=== PATIENT | male | born 1995 | race Hispanic/Latino ===

== ENCOUNTER 2018-05-25 00:39 | Emergency (ER) | payer OTHER, SELFPAY ==
[2018-05-25 00:50] VITALS: BP 136/93; PULSE 60; RESP 18; TEMP 36.7; O2SAT 98; BMI 22.4
[2018-05-25 01:10] VITALS: BP 128/78; PULSE 58; RESP 14; TEMP 36.7; O2SAT 100; BMI 22.4
--- NOTE | 2018-05-25 01:10 | DI.CT.S_ITS ---
PROCEDURE: CT HEAD/BRAIN WO CON INDICATIONS: head injury, hit in head by machine at work TECHNIQUE: Noncontrast 4.5 mm thick angled axial sections acquired from the foramen magnum to the vertex, with coronal and sagittal reformats. For radiation dose reduction, the following was used: automated exposure control, adjustment of mA and/or kV according to patient size. COMPARISON: None. FINDINGS: Image quality: Excellent. CSF spaces: Basal cisterns are patent. No extra-axial fluid collections. Ventricles are normal in size and shape. Brain: No intracranial hemorrhage, mass, or mass effect. Loredo-white matter interface is preserved. Skull and face: Calvarium and visualized facial bones appear intact. There is soft tissue swelling of the scalp with a small associated subcutaneous hematoma in the posterior vertex region. Sinuses: Visualized sinuses and mastoids are clear. IMPRESSION: 1. No acute intracranial abnormality. 2. Posterior scalp soft tissue swelling and small subcutaneous hematoma at the vertex. No associated fracture. Dictated by: Dwayne Gregg M.D. on 05/25/2018 at 7:58 Approved by: Dwayne Gregg M.D. on 05/25/2018 at 8:00
--- NOTE | 2018-05-25 01:10 | DI.CT.S_ITS ---
PROCEDURE: CT CERVICAL SPINE WO CON INDICATIONS: neck pain, hit in head by machine at work TECHNIQUE: Noncontrast 3 mm thick sections acquired from the skull base to the T4 level. Sagittal and coronal reformats were then constructed. For radiation dose reduction, the following was used: automated exposure control, adjustment of mA and/or kV according to patient size. COMPARISON: None. FINDINGS: Image quality: Excellent. Bones: No fractures or dislocations. There is a levoscoliosis of the cervicothoracic spine centered at C7-T1. Straightening of the cervical lordosis is noted. Visualized superior ribs are intact. Soft tissues: Prevertebral soft tissues are normal in thickness. No paravertebral hematomas. No apical pneumothoraces. IMPRESSION: 1. No fracture or subluxation. 2. Levoscoliosis of the cervicothoracic spine and straightening of the cervical lordosis. Dictated by: Dwayne Gregg M.D. on 05/25/2018 at 8:00 Approved by: Dwayne Gregg M.D. on 05/25/2018 at 8:03
--- NOTE | 2018-05-25 01:40 | ED.TRAUMA ---
HPI - Trauma General Chief Complaint: Extremity Injury, Upper Stated Complaint: hit in head by machine work/ neck/back/head inj Time Seen by Provider: 05/25/18 00:41 Source: patient and family Mode of arrival: ambulatory Limitations: no limitations History of Present Illness HPI narrative: 23-year-old male with no medical history presents to the emergency department with a chief complaint of head and neck pain after work-related injury. The patient was wearing home and was struck in the head by heavy, 400 lb, door that struck him in the back of his helmeted head. He denies loss of consciousness nor nausea, vomiting or diarrhea. He denies any focal neurologic findings above. He does not have any alcohol or street drugs on board MD complaint: injury Onset (ago): minute(s) Loss of Consciousness: no Location: head Context: unsure Associated symptoms: nausea Related Data Previous Rx's Medication Instructions Recorded cyclobenzaprine 10 mg PO TID PRN #14 tab 05/25/18 hydrocodone-acetaminophen 1 tab PO Q4-6H PRN #14 tab 05/25/18 ibuprofen 600 mg PO TID-QID PRN #20 tab 05/25/18 Allergies Allergy/AdvReac Type Severity Reaction Status Date / Time No Known Drug Allergies Allergy Verified 05/25/18 02:03 Review of Systems Review of Systems All systems reviewed & are unremarkable except as noted in HPI and below Constitutional Denies chills, Denies fever(s), Denies lethargy and Denies weakness Eyes Denies change in vision, Denies eye discharge, Denies irritation and Denies loss of vision ENT Ears, Nose, Mouth, and Throat: Denies change in voice, Reports neck pain and Denies sore throat Cardiovascular Denies chest pain, Denies irregular heart rhythm, Denies lightheadedness, Denies palpitations, Denies dyspnea, Denies dyspnea on exertion and Denies orthopnea Respiratory Denies cough, Denies dyspnea, Denies dyspnea on exertion and Denies wheezing Gastrointestinal Gastrointestinal: Denies abdominal pain, Denies change in bowel habits, Denies diarrhea, Denies nausea and Denies vomiting Genitourinary Denies hematuria, Denies flank pain, Denies urinary incontinence and Denies urinary urgency Musculoskeletal Reports back pain and Reports neck pain Integumentary/Breasts Denies pruritus, Denies erythema, Denies rash and Denies wounds Neurologic Denies confusion, Denies loss of vision and Denies weakness Psychiatric Denies anxiety, Denies confusion, Denies depression, Denies homicidal ideation and Denies suicidal ideation Endocrine Denies palpitations Hematologic/Lymphatic Denies easy bruising Allergic/Immunologic Denies wheezing Exam Narrative Exam Narrative: 23-year-old male obviously uncomfortable walking very stiff holding his neck Initial Vital Signs Initial Vital Signs: Vital Signs Temperature 98.1 F 05/25/18 00:50 Pulse Rate 60 05/25/18 00:50 Respiratory Rate 18 05/25/18 00:50 Blood Pressure 136/93 H 05/25/18 00:50 Pulse Oximetry 98 05/25/18 00:50 Const General: cooperative and well developed Nutritional Appearance: well nourished Orientation: alert, awake, oriented x3 and not confused HENMT Head: normocephalic and atraumatic Ears: external ears normal and TM's normal bilaterally Nose: external nose normal and No nasal discharge Face and sinus: sinuses nontender, face symmetric, no sinus tenderness and No dry mucous membranes Mouth: oral mucosae normal and moist mucous membranes Teeth and gingiva: dentition normal Throat: tonsils normal and uvula midline Eyes General: appearance normal, both eyes and all related structures Eyelids: eyelids normal Conjunctivae: conjunctivae normal Sclera: sclerae normal Pupils: PERRL EOM: EOM intact bilaterally Neck Neck: tender (Left side. No increase with axial load. No neuro findings such as numbness, tingling or weakness) Chest Chest: normal inspection of the chest Resp Effort & Inspection: normal respiratory effort, able to speak in complete sentences, no respiratory distress and no use of accessory muscles Auscultation: clear to auscultation bilaterally, no rales, no rhonchi and no wheezes Cardio Rate: regular rate Rhythm: regular rhythm Heart Sounds: no click, no gallops, no murmurs and no rubs Pulses: normal peripheral pulses GI Inspection: non-distended Palpation: soft, no hepatosplenomegaly, No guarding, No pulsatile mass and No tender Auscultation: normal bowel sounds Back/Spine/Pelvis Back: normal to inspection Cervical Spine: No cervical ROM normal, pain with cervical ROM, cervical spasm and cervical spinal tenderness Thoracic/Lumbar Spine: thoracic and lumbar spine normal to inspection Sacroiliac Joints: nontender Course Orders Ordered: ED Orders 05/25/18 01:10 CT cervical spine wo con Stat CT head/brain wo con Stat Discontinued Medications Hydrocodone Bitart/Acetaminophen (Vicodin Prepack) 1 bottle MISC SEEINSTR ONE Stop: 05/25/18 02:31 Last Admin: 05/25/18 02:40 Dose: 1 bottle Hydromorphone HCl (Dilaudid) 1 mg SUBCUT Q4H PRN PRN Reason: Pain, Severe (7-10) Last Admin: 05/25/18 02:35 Dose: 1 mg Vital Signs - 8 hr 05/25/18 00:50 05/25/18 03:21 Temperature 98.1 F Pulse Rate 60 58 L Respiratory Rate 18 14 Blood Pressure 136/93 H 128/78 H Pulse Oximetry 98 100 MDM - Trauma Medical Records Attestation: I reviewed the patient's medical records. Imaging Data CT scan - head: Radiologist's impression: CT HEAD: NAP CT Cspine: NAP Discharge Plan Departure Patient Disposition: Home Clinical Impression: Acute neck sprain Discharge Date/Time: 05/25/18 03:22 Interventions: ED Discharge Assessment Last Done: 05/25/18 03:21 Instructions: DI for Neck Pain Activity Restrictions/Additional Instructions: *You have been diagnosed with [ acute neck pain, status post work injury ] *What to do: *Take medications as directed *Follow up with your primary care provider in 2-3 days, call for an appointment. Let them know you were seen in the Emergency Department and that we ask that you be seen in follow up *Return to ER if you should have any new, worsening or concerning symptoms You have been prescribed narcotic medications. While on these medications you cannot drive or operate heavy machinery. Additionally you cannot sign legal documents or perform any duties such as this. 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 Please understand that we cannot provide further refills of narcotics or controlled substances through the ED and your pain management will need to be through your Primary Care Provider Prescriptions: New cyclobenzaprine 10 mg tablet 10 mg PO TID PRN (Reason: muscle spasm) Qty: 14 RF: 0 hydrocodone-acetaminophen 5-325 mg tablet 1 tab PO Q4-6H PRN (Reason: pain) Qty: 14 RF: 0 ibuprofen 600 mg tablet 600 mg PO TID-QID PRN (Reason: pain) Qty: 20 RF: 0 Stand Alone Forms: Work/School Restrictions
[2018-05-25] MEDS: HYDROMORPHONE 2 MG INJ 1 MG SUBCUT (02:35)
[2018-05-25] MEDS: HYDROCODONE/ACET 5/325 PREPACK 1 BOTTLE MISC (02:40)
[2018-05-25 03:21] VITALS: BP 128/78; PULSE 58; RESP 14; O2SAT 100
--- NOTE | 2018-05-25 06:10 | PC.NURSE ---
Pt reports left sided neck and shoulder pain, hit in back of head with metal door at work. Pt denies LOC and was wearing hard hat.
== END 2018-05-25 03:22 | disposition home or self-care (01) ==
PROVIDERS: Emergency Provider Emergency Medicine
DX: S13.9XXA Sprain of joints and ligaments of unspecified parts of neck, initial encounter (principal); W22.8XXA Striking against or struck by other objects, initial encounter; Y99.0 Civilian activity done for income or pay
CPT/HCPCS: 70450; 72125; 96372; 99282; 99284; J1170